=== PATIENT | female | born 2000 | race Caucasian/White ===

== ENCOUNTER 2021-05-26 10:22 | Emergency (ER) | payer MEDICAID ==
[~2021-05-26] VITALS: Ht 165.1 cm; Wt 75.0 kg
[2021-05-26] MEDS ORDERED: IBUPROFEN 400 MG TABLET PO ONE (11:15)
[2021-05-26] MEDS ORDERED: ACETAMINOPHEN 500 MG TABLET PO ONE (11:15)
[2021-05-26 12:56] VITALS: BP 122/66
== END 2021-05-26 13:30 | disposition home or self-care (01) ==
LOC: EMS 10:31
DX: H66.92 Otitis media, unspecified, left ear (principal); H61.22 Impacted cerumen, left ear
CPT/HCPCS: 69209; 69210; 99283; 99284

== ENCOUNTER 2022-06-18 11:24 | Emergency (ER) | payer MEDICAID ==
[~2022-06-18] VITALS: Ht 162.6 cm; Wt 65.9 kg
[2022-06-18] MEDS ORDERED: POLYMYXIN B/TRIMETHOPRIM 10 ML OPHTHALMIC SOLUTION OS ONE (12:15)
[2022-06-18] MEDS ORDERED: GENTAMICIN SULFATE 0.1% 15 GM OINTMENT TP ONE (12:15)
[2022-06-18] MEDS ORDERED: BACITRACIN/POLYMYXIN B 3.5 GM OPHTHALMIC OINTMENT OS ONE (12:30)
[2022-06-18] MEDS ORDERED: GENTAMICIN SULFATE 0.3% OPHTHALMIC SOLUTION 5 ML OS ONE (12:30)
[2022-06-18 12:50] VITALS: BP 108/61
== END 2022-06-18 12:56 | disposition home or self-care (01) ==
LOC: EMS 11:24
DX: H00.024 Hordeolum internum left upper eyelid (principal)
CPT/HCPCS: 99283

== ENCOUNTER 2023-04-12 18:49 | Emergency (ER) | payer MEDICAID ==
[~2023-04-12] VITALS: Ht 157.5 cm; Wt 65.9 kg
[2023-04-12 18:58] VITALS: TEMP 98.1
[2023-04-12 19:32] LABS: COVID AG,FIA SOURCE NASAL SWAB
[2023-04-12 20:10] LABS: SARS-COV2 (COVID) ANTIGEN,FIA Negative (Negative)
[2023-04-12 20:11] LABS: INFLUENZA TYPE A NEGATIVE FOR TYPE A (NEGATIVE); INFLUENZA TYPE B NEGATIVE FOR TYPE B (NEGATIVE)
[2023-04-12] MEDS: PB/HYOSCY/ATR/SCOP/LIDO/MAALOX 55 ML BOTTLE PO ONE (21:18)
[2023-04-12 21:21] VITALS: BP 110/69; PULSE 94; RESP 18
== END 2023-04-12 21:25 | disposition home or self-care (01) ==
LOC: EMS 18:50
DX: K21.9 Gastro-esophageal reflux disease without esophagitis (principal); Z20.822 Contact with and (suspected) exposure to COVID-19
CPT/HCPCS: 87430; 87804; 99283

== ENCOUNTER 2023-09-06 04:19 | Emergency (ER) | payer MEDICAID ==
[~2023-09-06] VITALS: Ht 162.6 cm; Wt 59.0 kg
[2023-09-06 04:23] VITALS: TEMP 98.3
[2023-09-06 05:46] VITALS: BP 110/59; PULSE 74; RESP 20
[2023-09-06] MEDS: HYDROCODONE/ACETAMINOPHEN 5-325 MG TABLET PO ONE (06:26)
[2023-09-06] MEDS ORDERED: HYDR-4062 PO (06:26)
== END 2023-09-06 06:37 | disposition home or self-care (01) ==
LOC: EMS 04:19
DX: K08.89 Other specified disorders of teeth and supporting structures (principal)
CPT/HCPCS: 99283

== ENCOUNTER 2024-09-09 22:23 | Emergency (ER) | payer OTHER, MEDICAID ==
[~2024-09-09] VITALS: Ht 162.6 cm; Wt 63.0 kg
[~2024-09-09 22:23] MED LIST: HYDR-4062 PO
[2024-09-09 22:32] VITALS: TEMP 98.2
[2024-09-09 22:57] LABS: APPEARANCE,URINE CLEAR (CLEAR); GLUCOSE, URINE (UA) NEGATIVE (NEGATIVE); LEUKOCYTE ESTERASE ,URINE NEGATIVE (NEGATIVE); NITRATE,URINE NEGATIVE (NEGATIVE); OCCULT BLOOD,URINE NEGATIVE (NEGATIVE); SPECIFIC GRAVITIY, URINE 1.030 (1.003-1.030)
[2024-09-09 23:09] LABS: SQUAMOUS EPITHELIAL CELL,UR Few /LPF (None Seen)
[2024-09-09] MEDS: SODIUM CHLORIDE 0.9% 1,000 ML IV ONE (23:31)
[2024-09-09 23:38] LABS: PLATELET COUNT (AUTO) 252 K/uL (150-450); RED BLOOD CELL COUNT(AUTO) 4.31 MIL/uL (4.00-5.20); RED CELL DISTRIBUTION WIDTH 13.5 % (11.5-14.5); WHITE BLOOD COUNT (AUTO) 4.8 K/uL (4.5-11.0)
[2024-09-09 23:51] LABS: CALCIUM, TOTAL 9.1 mg/dL (8.8-10.5); CREATININE 0.80 mg/dL (0.60-1.30); GLOMERULAR FILTR. RATE CALC > 60 mL/min (>60); GLUCOSE,RANDOM 79 mg/dL (70-110); SODIUM SERUM 141 mmol/L (136-145); UREA NITROGEN, BLOOD 18 mg/dL (7-18)
[2024-09-10 00:08] LABS: HCG,QUANTITATIVE < 1 mIU/mL (0-6)
[2024-09-10] MEDS ORDERED: POLY119P3 PO (00:24)
[2024-09-10 00:36] VITALS: BP 114/74; PULSE 83; RESP 17; O2SAT 99
== END 2024-09-10 00:52 | disposition home or self-care (01) ==
LOC: EMS 22:43
DX: K59.00 Constipation, unspecified (principal); R10.30 Lower abdominal pain, unspecified; Z90.49 Acquired absence of other specified parts of digestive tract; N89.8 Other specified noninflammatory disorders of vagina; Z88.1 Allergy status to other antibiotic agents; Z79.899 Other long term (current) drug therapy
CPT/HCPCS: 99284; 96360; 80048; 81001; 83690; 84702; 84703; 85025; 36415; 74018; J7030